=== PATIENT | male | born 1930 | race Caucasian/White ===

== ENCOUNTER → 2019-03-27 | Outpatient (CLI) | payer MEDICARE ==
--- NOTE | 2019-03-27 13:48 | Diagnostic Imaging Report ---
INDICATION: Chronic left shoulder pain. Time of exam 11:28 a.m. FINDINGS: Three views of the left shoulder were obtained. The glenohumeral and acromioclavicular alignment are normal. There is some narrowing of the acromiohumeral space suggestive of chronic rotator cuff arthropathy. No fracture or dislocation is seen. Pacer overlies the left axilla. IMPRESSION: Changes of chronic rotator cuff arthropathy. No acute fracture is seen. Dictated by: Dictated on workstation # [id number]
== END ==
LOC: RAD FS 11:18
PROVIDERS: ATTEND Nurse Practitioner
DX: M19.012 Primary osteoarthritis, left shoulder (principal)
CPT/HCPCS: 73030